=== PATIENT | female | born 1990 | race African-American/Black ===

== ENCOUNTER 2019-03-21 23:09 | Emergency (ER) | payer MEDICAID, MEDICARE ==
[2019-03-22 00:30] LABS: ABSOLUTE BASOPHILS # (AUTO) 0.1 10^3/uL (0.0-0.2); ABSOLUTE EOSINOPHILS # (AUTO) 0.1 10^3/uL (0.0-0.6); ABSOLUTE LYMPHOCYTES (AUTO) 2.1 10^3/uL (0.5-4.7); ABSOLUTE MONOCYTES (AUTO) 0.5 10^3/uL (0.1-1.4); ABSOLUTE NEUT (AUTO) 6.5 10^3/uL (1.7-8.2); BASOPHILS % (AUTO) 0.6 % (0-2); EOSINOPHILS % (AUTO) 1.2 % (0-6); HEMATOCRIT 37.1 % (36.0-47.0); MEAN CORPUSCULAR HEMOGLOBIN 27.1 pg (27.0-33.4); MEAN CORPUSCULAR HGB CONC 32.2 g/dL (32.0-36.0); MEAN CORPUSCULAR VOLUME 84 fl (80-97); MONOCYTES % (AUTO) 5.8 % (3-13); PLATELET COUNT 318 10^3/uL (150-450); RED BLOOD COUNT 4.41 10^6/uL (3.72-5.28); RED CELL DISTRIBUTION WIDTH 17.9 % (11.5-14.0); SEGMENTED NEUTROPHILS % (AUTO) 69.4 % (42-78); TOTAL CELLS COUNTED % (AUTO) 100 %; WHITE BLOOD COUNT 9.3 10^3/uL (4.0-10.5)
[2019-03-22 00:32] LABS: ALANINE AMINOTRANSFERASE 10 U/L (9-52); ALBUMIN 4.3 g/dL (3.5-5.0); ALKALINE PHOSPHATASE 81 U/L (38-126); ANION GAP 13 (5-19); ASPARTATE AMINO TRANSFERASE 19 U/L (14-36); BILIRUBIN,DIRECT 0.3 mg/dL (0.0-0.4); BILIRUBIN,TOTAL 0.4 mg/dL (0.2-1.3); BLOOD UREA NITROGEN 11 mg/dL (7-20); CALCIUM 9.8 mg/dL (8.4-10.2); CARBON DIOXIDE 21 mmol/L (22-30); CHLORIDE 109 mmol/L (98-107); GLUCOSE 103 mg/dL (75-110); POTASSIUM 4.3 mmol/L (3.6-5.0); SODIUM 143.1 mmol/L (137-145); TOTAL PROTEIN 7.5 g/dL (6.3-8.2)
[2019-03-22 00:33] LABS: AMORPHOUS SEDIMENT,URINE TRACE /HPF; APPEARANCE,URINE CLOUDY; BILIRUBIN,URINE NEGATIVE (NEGATIVE); COLOR,URINE YELLOW; GLUCOSE, URINE NEGATIVE (NEGATIVE); KETONES,URINE TRACE mg/dL (NEGATIVE); LEUKOCYTE ESTERASE,URINE MODERATE (NEGATIVE); NITRITE,URINE POSITIVE (NEGATIVE); PROTEIN,URINE 30 mg/dL (NEGATIVE); URINE SPECIFIC GRAVITY 1.027
[2019-03-22 00:33] LABS: ACETAMINOPHEN < 10 ug/mL (10-30); ALCOHOL < 10 mg/dL (NONE DETECTED); SALICYLATE < 1.0 mg/dL (2.0-20.0)
[2019-03-22 00:53] LABS: URINE AMPHETAMINES SCREEN NEGATIVE; URINE BARBITURATES SCREEN NEGATIVE; URINE BENZODIAZEPINES SCREEN NEGATIVE; URINE COCAINE SCREEN NEGATIVE; URINE MARIJUANA (THC) SCREEN UNCONFIRMED POSITIVE; URINE METHADONE SCREEN NEGATIVE; URINE PHENCYCLIDINE SCREEN NEGATIVE
--- NOTE | 2019-03-22 01:08 | ER Document Report ---
Addendum entered and electronically signed by BIRD SCHWARTZ LPC 03/22/19 10:41: Discharge - Discharge Clinical Impression: Auditory hallucinations Schizophrenia Qualifiers: Schizophrenia type: unspecified Qualified Code(s): F20.9 - Schizophrenia, unspecified Condition: Stable Disposition: HOME, SELF-CARE Additional Instructions: You have been evaluated by both medical and behavioral health providers while in the emergency department. You have been cleared from both acute medical and psychiatric services. You admitted you have been off your medication for 2 months and have been having difficulty functioning properly and thinking people are speaking in code. Started medication regimen that aids in psychosis. Coordinated with your father for plan of care and follow up outpatient. Hallucinations You seem to be having hallucinations. Hallucinations are seeing, hearing, or feeling things that don't exist. These symptoms commonly occur with drug abuse and schizophrenia. Drugs like PCP, LSD, MDMA, peyote, and "psychedelic mushrooms" can cause frightening hallucinations. Users of methamphetamine or crack cocaine often see and feel bugs crawling on their skin. Patients with schizophrenia may hear voices that no one else can hear. The delusions of schizophrenia often involve conspiracies or relationships that are not real. When symptoms are due to drug abuse, the mental state usually improves as the drug wears off. Someone you trust should be with you until you are better, to protect you and calm your fears. Tranquilizer medicine is helpful at controlling hallucinations, anxiety, and deluded thoughts. Get a proper diet and enough sleep. Most patients do very well when they get proper medical treatment and social support. You should return at once if your symptoms get worse, if you are having suicidal thoughts or thoughts about hurting others, or if you feel that you are in danger. Schizophrenia Schizophrenia is a chemical disorder that affects how the brain functions. The exact cause is unknown, but it tends to run in families. It is NOT caused by emotional trauma. Schizophrenia causes disordered thinking, including unusual beliefs and inability to "process" happenings around the patient. Patients with schizophrenia benefit greatly from medicine. These medicines are called antipsychotics. Never stop the medicine without the doctor's approval. Counselling may help the patient deal with his disease. Schizophrenics require a very ordered environment. Stresses and sudden changes may bring out symptoms. Drugs and alcohol abuse may become problems. Contact the counsellor or crisis line if there are thoughts of suicide or of harming others, or if you become aware of unusual thoughts or beliefs Follow-Up Plan: Started Haldol 10MG daily and Cogentin 1MG daily to aid in psychosis and stabilization. You got prescriptions for these and should take them as prescribed. Your father has agreed to provide transportation from the emergency department (at [phone]) and take you fro follow up at [facility] in [place] (where you have been previously). You have been provided an outpatient mental health resource sheet which lists local agency providers and [facility] for crisis, talk therapy and linkage to other services/supports. Referrals: [facility] [Outside] - Follow up as needed Original Note: ED General - General Chief Complaint: Psych Problem Stated Complaint: PSYCH Time Seen by Provider: 03/22/19 00:26 Notes: Patient is a 28-year-old female with past medical history of schizophrenia currently off all medications for the past 2 months who presents with increasing auditory hallucinations, paranoid delusions by her own report stating that she is concerned that her schizophrenia may be getting out of control and that she needs to get back on her medications. Patient does arrive by EMS. She denies any acute suicidal homicidal ideation. Patient states that she has felt similar in the past prior to getting much worse in terms of her delusions and schizophrenia. She denies any acute medical complaints. Nothing seems to improve or worsen her symptoms. Regards her current symptoms as being mild and intermittent in nature. - Related Data Allergies/Adverse Reactions: No Known Allergies Allergy (Unverified 03/21/19 23:29) Past Medical History - General Information source: Patient - Social History Smoking Status: Current Every Day Smoker Frequency of alcohol use: None Drug Abuse: Marijuana Family History: Reviewed & Not Pertinent Patient has suicidal ideation: No - denies Patient has homicidal ideation: No - denies Renal/ Medical History: Denies: Hx Peritoneal Dialysis Psychiatric Medical History: Reports: Hx Depression, Hx Schizophrenia - with paranoia Review of Systems - Review of Systems Notes: Constitutional: Negative for fever. HENT: Negative for sore throat. Eyes: Negative for visual changes. Cardiovascular: Negative for chest pain. Respiratory: Negative for shortness of breath. Gastrointestinal: Negative for abdominal pain, vomiting or diarrhea. Genitourinary: Negative for dysuria. Musculoskeletal: Negative for back pain. Skin: Negative for rash. Neurological: Negative for headaches, weakness or numbness. 10 point ROS negative except as marked above and in HPI. Physical Exam - Vital signs Vitals: Temp Pulse Resp BP Pulse Ox 98 F 86 18 128/93 H 98 03/21/19 23:09 03/21/19 23:09 03/21/19 23:09 03/21/19 23:09 03/21/19 23:09 Interpretation: Normal Notes: PHYSICAL EXAMINATION: GENERAL: Well-appearing, well-nourished and in no acute distress. HEAD: Atraumatic, normocephalic. EYES: Pupils equal round and reactive to light, extraocular movements intact, sclera anicteric, conjunctiva are normal. ENT: nares patent, oropharynx clear without exudates. Moist mucous membranes. NECK: Normal range of motion, supple without lymphadenopathy LUNGS: Breath sounds clear to auscultation bilaterally and equal. No wheezes rales or rhonchi. HEART: Regular rate and rhythm without murmurs ABDOMEN: Soft, nontender, normoactive bowel sounds. No guarding, no rebound. No masses appreciated. EXTREMITIES: Normal range of motion, no pitting or edema. No cyanosis. NEUROLOGICAL: No focal neurological deficits. Moves all extremities spontaneously and on command. PSYCH: Normal mood, normal affect. SKIN: Warm, Dry, normal turgor, no rashes or lesions noted. Course - Re-evaluation Re-evalutation: 03/22/19 01:06 Patient presents with concerns of intermittent auditory hallucinations, paranoid delusions, history of schizophrenia currently off all medications. The patient is alert, oriented, cooperative on exam. She does not appear to be responding to internal stimuli. She came off of her medication simply due to lack of follow-up with a primary doctor. The patient does not meet involuntary commitment criteria. Will remain in the emergency department on voluntary basis. She denies any medical complaints. Medical screening exam and labs are unremarkable. Patient is cleared for evaluation and disposition by [facility] in the morning. - Vital Signs Vital signs: Temp Pulse Resp BP Pulse Ox 98 F 86 18 128/93 H 98 03/21/19 23:09 03/21/19 23:09 03/21/19 23:09 03/21/19 23:09 03/21/19 23:09 - Laboratory Result Diagrams: 03/21/19 23:23 03/21/19 23:23 Laboratory results interpreted by me: 03/21/19 03/21/19 03/21/19 23:23 23:23 23:25 RDW 17.9 H Chloride 109 H Carbon Dioxide 21 L Urine Protein 30 H Urine Ketones TRACE H Urine Nitrite POSITIVE H Urine Urobilinogen 4.0 H Ur Leukocyte Esterase MODERATE H Salicylates < 1.0 L Acetaminophen < 10 L Discharge - Discharge Clinical Impression: Auditory hallucinations Schizophrenia Qualifiers: Schizophrenia type: unspecified Qualified Code(s): F20.9 - Schizophrenia, unspecified Condition: Fair Disposition: PSYCH HOSP/UNIT
--- NOTE | 2019-03-22 09:31 | ER Document Report ---
Doctor's Note Notes: 03/22/19 09:31 28-year-old female with schizophrenia not taking her medications for 2 months with some increased auditory hallucinations and some paranoid delusions. Patient denies any pain or fevers. Urine analysis is nitrite positive with positive leukocyte Estrace. No noted on the laboratory values. Vital signs are stable. We will add a test, provide Keflex antibiotics, and send the urine analysis for culture. Awaiting psychiatric evaluation.
--- NOTE | 2019-03-22 10:45 | PSYCHOLOGICAL NOTE ---
Psych Note - Psych Note Date seen by psych provider: 03/22/19 Psych Note: Diagnosis: Schizophrenia Disorder, Paranoid Type by History per patient Medication recommendations made by the psychiatric medical provider, Dr. Tom MD., includes: Add Haldol 10Mg daily for psychosis Add Cogentin 1MG daily to curb tremor side effects often associated with antipsychotic medications Impression/Plan: Patient is cleared from acute psychiatric services.
[2019-03-22] MEDS: CEPHALEXIN 500 MG CAPSULE PO SCH ×3 (10:47→17:28)
[2019-03-22] MEDS ORDERED: HALOPERIDOL 5 MG TABLET PO SCH (11:00)
[2019-03-22] MEDS ORDERED: BENZTROPINE MESYLATE 1 MG TABLET PO SCH (11:15)
--- NOTE | 2019-03-22 20:15 | EKG REPORT ---
SEVERITY:- NORMAL ECG - SINUS RHYTHM : Confirmed by: Gopal Hoang MD 22-Mar-2019 20:13:29
[2019-03-22 20:57] VITALS: BP 148/84
== END 2019-03-22 20:58 | disposition home or self-care (01) ==
LOC: ER 23:09
DX: F20.9 Schizophrenia, unspecified (principal); F17.200 Nicotine dependence, unspecified, uncomplicated; F12.10 Cannabis abuse, uncomplicated; Z91.14 Patient's other noncompliance with medication regimen
CPT/HCPCS: 93005; 99285; 36415; 87086; 80307 ×4; 85025; 81025; 87088; 80053; 81001; 87186; 93010; A9270 ×3